=== PATIENT | female | born 1995 | race African-American/Black ===

== ENCOUNTER 2017-02-10 01:09 | Emergency (ER) | payer MEDICAID ==
[~2017-02-10] VITALS: Ht 154.9 cm; Wt 54.4 kg
[2017-02-10] MEDS ORDERED: NKM ×2 (01:15→02:16)
--- NOTE | 2017-02-10 01:26 | Emergency Room Report ---
History of Present Illness General Chief Complaint: Abdominal Pain Source: Patient Present Illness HPI Is 21-year-old female with chief complaint abdominal pain. She called 911 for it. According to [facility], they know her well. She's been to multiple hospitals for the same thing. She complaining of diffuse abdominal pain. No fever chills but no nausea no vomiting. Has been ongoing for months. Denies any other complaint. Allergies: Coded Allergies: No Known Allergies (Unverified , 02/10/17) Patient History Past Medical History: see triage record, old chart reviewed Past Surgical History: other Pertinent Family History: none Social History: Denies: smoking Last Menstrual Period: 2 months ago Now: No Immunizations: other Reviewed Nursing Documentation: PMH: Agreed, PSxH: Agreed Nursing Documentation-PMH Past Medical History: No Stated History Review of Systems Eye: Denies: blurred vision, eye pain ENT: Denies: ear pain, nose congestion, throat swelling Respiratory: Denies: cough, shortness of breath Cardiovascular: Denies: chest pain, palpitations Gastrointestinal: Reports: abdominal pain, Denies: diarrhea, nausea, vomiting Musculoskeletal: Denies: back pain, joint pain Skin: Denies: rash Neurological: Denies: headache, numbness Endocrine: Denies: increased thirst, increased urine Hematologic/Lymphatic: Denies: easy bruising All Other Systems: negative except mentioned in HPI Physical Exam Vital Signs Date Time Temp Pulse Resp B/P Pulse Ox O2 Delivery O2 Flow Rate FiO2 02/10/17 01:15 98.1 66 18 115/74 100 Room Air vitals normal Sp02 EP Interpretation: reviewed, normal General Appearance: well appearing, no apparent distress, alert Head: normocephalic, atraumatic Eyes: bilateral eye EOMI, bilateral eye PERRL ENT: hearing grossly normal, normal pharynx Neck: full range of motion, supple, no meningismus Respiratory: chest non-tender, lungs clear, normal breath sounds Cardiovascular #1: regular rate, rhythm, no murmur Gastrointestinal: normal bowel sounds, non tender, no mass, no organomegaly, no bruit, non-distended Musculoskeletal: back normal, gait/station normal, normal range of motion Psychiatric: mood/affect normal Skin: warm/dry Medical Decision Making Diagnostic Impression: Primary Impression: Abdominal pain Qualified Codes: R10.84 - Generalized abdominal pain ER Course Patient with abdominal pain. She's sitting very comfortably eating chips. She has multiple lerner from previous IV and front clerk her arms and body. Her abdominal exam is completely benign. I was examining her and talking to at the same time. She has no pain. We'll discharge home. Last Vital Signs Date Time Temp Pulse Resp B/P Pulse Ox O2 Delivery O2 Flow Rate FiO2 02/10/17 01:15 98.1 66 18 115/74 100 Room Air Status: improved Disposition: HOME, SELF-CARE Condition: Stable Patient Instructions: Abdominal Pain, Adult Additional Instructions: Followup with your Dr. in 7 days. Return if symptom worsen. SEB ROQUE M.D. Feb 10, 2017 01:26
[2017-02-10 01:29] VITALS: BP 115/74
== END 2017-02-10 01:30 | disposition home or self-care (01) ==
LOC: EDBD 01:09 → EMR 01:25
DX: R10.84 Generalized abdominal pain (principal)
CPT/HCPCS: 99283

== ENCOUNTER 2017-02-10 02:19 | Emergency (ER) | payer MEDICAID ==
[~2017-02-10] VITALS: Ht 157.5 cm; Wt 56.2 kg
[~2017-02-10 02:19] MED LIST: NKM
[2017-02-10 02:31] VITALS: BP 98/64
--- NOTE | 2017-02-10 02:38 | Emergency Room Report ---
History of Present Illness General Chief Complaint: Abdominal Pain Source: Patient Present Illness HPI Is a 21-year-old female who was just discharged here. She walks to nearby house and asked them to call 911. She complaining of abdominal pain. Sustained when she's been having for unknown amount of time. She has multiple ER visit to different hospitals. Per EMS picked her up several times already. When she left here she was eating a sandwich. No vomiting or diarrhea. No urinary complaint. Allergies: Coded Allergies: No Known Allergies (Unverified , 02/10/17) Patient History Past Medical History: see triage record, old chart reviewed Past Surgical History: other Pertinent Family History: none Social History: Denies: smoking Last Menstrual Period: unk Now: No Immunizations: other Reviewed Nursing Documentation: PMH: Agreed, PSxH: Agreed Nursing Documentation-PMH Past Medical History: No Stated History Review of Systems Eye: Denies: blurred vision, eye pain ENT: Denies: ear pain, nose congestion, throat swelling Respiratory: Denies: cough, shortness of breath Cardiovascular: Denies: chest pain, palpitations Gastrointestinal: Reports: abdominal pain, Denies: diarrhea, nausea, vomiting Musculoskeletal: Denies: back pain, joint pain Skin: Denies: rash Neurological: Denies: headache, numbness Endocrine: Denies: increased thirst, increased urine Hematologic/Lymphatic: Denies: easy bruising All Other Systems: negative except mentioned in HPI Physical Exam Vital Signs Date Time Temp Pulse Resp B/P Pulse Ox O2 Delivery O2 Flow Rate FiO2 02/10/17 02:13 97.3 60 16 98/64 99 Room Air vitals normal Sp02 EP Interpretation: reviewed, normal General Appearance: well appearing, no apparent distress, alert Head: normocephalic, atraumatic Eyes: bilateral eye EOMI, bilateral eye PERRL ENT: hearing grossly normal, normal pharynx Neck: full range of motion, supple, no meningismus Respiratory: chest non-tender, lungs clear, normal breath sounds Cardiovascular #1: regular rate, rhythm, no murmur Gastrointestinal: normal bowel sounds, non tender, no mass, no organomegaly, no bruit, non-distended Musculoskeletal: back normal, gait/station normal, normal range of motion Psychiatric: mood/affect normal Skin: warm/dry Medical Decision Making Diagnostic Impression: Primary Impression: Abdominal pain Qualified Codes: R10.84 - Generalized abdominal pain Additional Impression: Malingering ER Course Patient presents with abdominal pain. She is abusing the system. She has multiple ER visits for sending already. She has multiple stickers and IV lerner on her. She's eating without any problem. When police questioned her, she may she said she call 911 so she has a warm place to go. I see no evidence of acute abdomen. No obstruction. Last Vital Signs Date Time Temp Pulse Resp B/P Pulse Ox O2 Delivery O2 Flow Rate FiO2 02/10/17 02:32 97.3 89 16 98/64 99 Room Air Status: improved Disposition: HOME, SELF-CARE Condition: Stable Patient Instructions: Abdominal Pain, Adult SEB ROQUE M.D. Feb 10, 2017 02:37
== END 2017-02-10 02:35 | disposition home or self-care (01) ==
LOC: EDBD 02:19 → EMR 02:31
DX: R10.84 Generalized abdominal pain (principal); Z76.5 Malingerer [conscious simulation]
CPT/HCPCS: 99283